=== PATIENT | female | born 1990 | race Caucasian/White ===

== ENCOUNTER 2017-10-25 19:25 | Emergency (ER) | payer OTHER ==
[~2017-10-25] VITALS: Ht 162.6 cm; Wt 81.6 kg
--- NOTE | 2017-10-25 20:46 | ED GI/GU/ABDOMINAL COMPLAINT ---
History of Present Illness General Chief Complaint: General Adult Stated Complaint: "ABD, N+V-D" Source: patient Exam Limitations: no limitations Vital Signs & Intake/Output Vital Signs & Intake/Output Vital Signs Date Time Temp Pulse Resp B/P B/P Pulse O2 O2 Flow FiO2 Mean Ox Delivery Rate 10/26 0156 98.7 88 18 121/61 98 Room Air 10/25 2345 98.2 89 18 119/57 97 Room Air 10/25 1945 98.0 83 18 131/85 98 Room Air ED Intake and Output 10/26 0000 10/25 1200 Intake Total Output Total Balance Patient 180 lb Weight Weight Reported by Patient Measurement Method Allergies Coded Allergies: Sulfa (Sulfonamide Antibiotics) ("SEVERE STOMACH ISSUES" PER PT 10/25/17) codeine ("HOT AND ITCHY" PER PT 10/25/17) pseudoephedrine (From SUDAFED) (HIVES/UPSET STOMACH PER PT 10/25/17) Reconcile Medications Fluconazole (Diflucan) 150 MG TABLET 1 TAB PO ONCE YEAST INFECTION REPEAT IN 1 WEEK. Phenazopyridine HCl (Pyridium) 100 MG TABLET 1 TAB PO TID PRN DYSURIA Triage Note: PT FROM HOME C/O LOWER ABD/PELVIC PAIN X1 WEEK. PT STATES THAT SINCE SATURDAY SHE HAS BEEN TO A WALK IN CLINIC, PCP WITH NO ANSWERS D/T ABD/PELVIC PAIN. PAIN 10. PT STATES UTI RESULTS WAS NEGATIVE, PT HAS BEEN ON CIPRO AND PYRIDIUM. PT STATES 1 MONTH PRIOR SHE HAD A UTI AND HAS NOT FELT BETTER SINCE. PT HAD US PERFORMED TODAY WITH NO RESULTS. PT HAS BURNING UPON URINATION AND MORE FREQUENTLY. PT DENIES VOMITING, +NAUSEA. VSS. Triage Nurses Notes Reviewed? yes ? n Is pt currently ? No Onset: Gradual Duration: day(s): Timing: recent history Location: suprapubic Radiation: no radiation Activities at Onset: none Prior Abdominal Problems: similar symptoms Modifying Factors: Worsens With: urinating. Associated Symptoms: dysuria HPI: 27-year-old woman presents with 6 days of lower abdominal pain. She states that she has been treated for a urinary tract infection 3. She is presently day 4 of ciprofloxacin. She saw her OBSTETRICAL NURSE today and had a transvaginal ultrasound, but does not yet know the results. She notes suprapubic pressure and difficulty with urination. She has no radiating pain into her back. No fever chills nausea vomiting diarrhea. She notes a white vaginal discharge which she suspects is a yeast infection. Past History Travel History Traveled to [place] past 21 day No Medical History Any Pertinent Medical History? see below for history Neurological: SPINAL/NERVE DAMAGE EENT: allergies Gastrointestinal: GERD Psychiatric: anxiety, depression Surgical History Surgical History: none Psychosocial History What is your primary language Burmese Tobacco Use: Quit >30 days ago ETOH Use: denies use Illicit Drug Use: marijuana Family History Hx Contributory? No Review of Systems Review of Systems Constitutional: Denies: see HPI. EENTM: Reports: no symptoms. Respiratory: Reports: no symptoms. Cardiovascular: Reports: no symptoms. GI: Reports: no symptoms. Genitourinary: Reports: no symptoms. Musculoskeletal: Reports: no symptoms. Skin: Reports: no symptoms. Neurological/Psychological: Reports: no symptoms. Hematologic/Endocrine: Reports: no symptoms. Immunologic/Allergic: Reports: no symptoms. All Other Systems: Reviewed and Negative Physical Exam Physical Exam Gastrointestinal: SEE BELOW Comments: Review of Systems - except as otherwise noted in HPI Review of Systems Constitutional:no symptoms. EENTM:no symptoms. Respiratory:no symptoms. Cardiovascular:no symptoms. GI:no symptoms. Genitourinary:no symptoms. Musculoskeletal:no symptoms. Skin:no symptoms. Neurological/Psychological:no symptoms. Hematologic/Endocrine:no symptoms. Immunologic/Allergic:no symptoms. All Other Systems: Reviewed and Negative Physical Exam Physical Exam General Appearance: well developed/nourished, no apparent distress Head: atraumatic, normal appearance Eyes: Bilateral: normal appearance. Ears, Nose, Throat: normal pharynx, normal ENT inspection Neck: normal inspection, supple, full range of motion Respiratory: normal breath sounds, chest non-tender, no respiratory distress, quiet respiration, lungs clear Cardiovascular: regular rate/rhythm Gastrointestinal: normal bowel sounds, soft, no organomegaly, mild suprapubic tenderness. No palpable bladder Pelvic: Moderate discharge consistent with yeast. Minimal adnexal tenderness bilaterally. Back: normal inspection, normal range of motion Extremities: normal inspection, normal capillary refill, normal range of motion, no edema Neurologic/Psych: no motor/sensory deficits, awake, alert, oriented x 3 Skin: intact, normal color, warm/dry Core Measures ACS in differential dx? No Sepsis Present: No Sepsis Focused Exam Completed? No Progress Differential Diagnosis: uti vs urinary retention vs other. Plan of Care: Orders Procedure Date/time Status Straight Cath 10/25 2306 Active TRICHOMONAS 10/25 2234 Complete POTASSIUM HYDROXIDE (JIM) 10/25 2234 Complete GENITAL CULTURE 10/25 2234 Active CHLAMYDIA-GC DNA PROBE 10/25 2234 Active URINALYSIS 10/25 1944 Complete LIPASE 10/25 1944 Complete HEPATIC FUNCTION PANEL 10/25 1944 Complete HUMAN BETA HCG SCREEN 10/25 1944 Complete CBC WITHOUT DIFFERENTIAL 10/25 1944 Complete BASIC METABOLIC PANEL 10/25 1944 Complete AMYLASE 10/25 1944 Complete Laboratory Tests 10/25/172044: Anion Gap 11, Estimated GFR > 60, BUN/Creatinine Ratio 18.6, Glucose 89, Calcium 9.9, Total Bilirubin 0.2, Direct Bilirubin 0.1, AST 18, ALT 24, Alkaline Phosphatase 68, Total Protein 7.1, Albumin 4.1, Amylase 63, Lipase 195, Total Beta HCG NEGATIVE, CBC w Diff NO MAN DIFF REQ, RBC 4.60, MCV 84.7, MCH 28.4, MCHC 33.5, RDW 13.1, MPV 10.1, Gran % 71.1, Lymphocytes % 22.7, Monocytes % 5.3, Eosinophils % 0.8, Basophils % 0.1, Absolute Granulocytes 6.5, Absolute Lymphocytes 2.1, Absolute Monocytes 0.5, Absolute Eosinophils 0.1, Absolute Basophils 0 10/25/17 2000: Urine Color YEL, Urine Clarity CLEAR, Urine pH 6.0, Ur Specific [place] <= 1.005 , Urine Protein NEG, Urine Ketones NEG, Urine Nitrite POS H, Urine Bilirubin NEG, Urine Urobilinogen 1.0, Ur Leukocyte Esterase NEG, Ur Microscopic SEDIMENT EXAMINED, Urine RBC 1-3, Ur Epithelial Cells FEW, Urine Bacteria FEW H, Urine Hemoglobin NEG, Urine Glucose NEG Microbiology 10/26 2303 GENITAL: GC DNA Probe - RECD 10/26 2303 GENITAL: Chlamydia DNA Probe (JOANNA) - RECD 10/26 2303 GENITAL: JIM Preparation - COMP 10/26 2303 GENITAL: Trichomonas Preparation - COMP 10/26 2303 GENITAL: Genital Culture - RECD Diagnostic Imaging: Viewed by Me: CT Scan. Discussed w/RAD: CT Scan. Radiology Impression: PATIENT: CARMELLA KUNZ PRESENT AGE: 27 PATIENT ACCOUNT NO: [id number] : 91 LOCATION: [facility] ORDERING PHYSICIAN: Jarrod Bass MD SERVICE DATE: 10/25/17 EXAM TYPE: CAT - CT ABD & PELVIS W/O IV CONTRAS EXAMINATION: CT ABDOMEN AND PELVIS WITHOUT CONTRAST CLINICAL INFORMATION: Lower abdominal pain COMPARISON: None TECHNIQUE: Multidetector volumetric imaging was performed from the superior aspect of the liver through the pubic symphysis. Sagittal and coronal reformatted images were obtained on the technologist's workstation. DLP: 457.5 tube mGy-cm FINDINGS: LUNG BASES: The visualized lung bases are unremarkable. LIVER, GALLBLADDER, AND BILIARY TREE: The liver is normal in size, shape, and attenuation. No focal hepatic lesion or biliary ductal dilatation is present. Patient is status post cholecystectomy. PANCREAS: Unremarkable. SPLEEN: There are adjacent hypoattenuating lesions in the posterior spleen measuring 2.4 x 1.8 cm and 1.1 x 1.0 cm which have the density of fluid, therefore suggesting cysts. ADRENAL GLANDS: Unremarkable. KIDNEYS AND URETERS: The kidneys are normal in size, shape, and attenuation. No hydronephrosis, hydroureter, or calculi seen. No perinephric stranding. BLADDER: Unremarkable. GASTROINTESTINAL TRACT: The small and large bowel are unremarkable. The appendix is unremarkable. No free fluid or free air is seen. ABDOMINAL WALL: No significant hernia is appreciated. LYMPH NODES: Normal. VASCULAR: Unremarkable. PELVIC VISCERA: Unremarkable. OSSEOUS STRUCTURES: Bilateral L5 pars defects are noted. IMPRESSION: 1. No acute findings identified in the abdomen/pelvis. 2. Low-density lesions in the spleen, suggestive of cysts. DICTATED BY: Markus Batista MD DATE/TIME DICTATED: 10/26/1748 HAND CANDLE MOLDER:URIEL DATE/TIME TRANSCRIBED:10/26/1748 CONFIDENTIAL, DO NOT COPY WITHOUT APPROPRIATE AUTHORIZATION. <Electronically signed in Other Vendor System> SIGNED BY: Markus Batista MD 10/26/17 0100 Initial ED EKG: none Departure Departure Disposition: HOME OR SELF CARE Condition: Stable Clinical Impression Primary Impression: Vaginal yeast infection Secondary Impressions: Abdominal pain Referrals: Lilian Prado APRN (PCP/Family) Departure Forms: Customer Survey General Discharge Information Prescriptions: Current Visit Scripts Fluconazole (Diflucan) 1 TAB PO ONCE #2 TAB REPEAT IN 1 WEEK. Phenazopyridine HCl (Pyridium) 1 TAB PO TID PRN DYSURIA #12 TAB Ref 1 Comments Discussed at length with the patient. CAT scan and lab work were benign which raises the question of interstitial cystitis versus endometriosis. She will follow-up with her urologist and her OBSTETRICAL NURSE Physician.
[2017-10-25 20:51] LABS: ABSOLUTE BASOPHIL COUNT 0 /CUMM (0.0-0.2); ABSOLUTE EOSINOPHIL COUNT 0.1 /CUMM (0.0-0.7); ABSOLUTE GRANULOCYTE CT 6.5 /CUMM (1.4-6.5); ABSOLUTE LYMPH COUNT 2.1 /CUMM (1.2-3.4); ABSOLUTE MONOCYTE COUNT 0.5 /CUMM (0.10-0.60); BASOPHIL % 0.1 % (0.0-2.0); EOSINOPHIL % 0.8 % (0-5); GRANULOCYTE % 71.1 % (42.2-75.2); MEAN CORPUSCULAR HGB 28.4 PG (27.0-31.0); MEAN CORPUSCULAR HGB CONC 33.5 G/DL (33.0-37.0); MEAN CORPUSCULAR VOLUME 84.7 FL (81.0-99.0); MEAN PLATELET VOLUME 10.1 FL (7.4-10.4); PLATELET COUNT 217 /CUMM (130-400); RBC DISTRIBUTION WIDTH 13.1 % (11.5-14.5); WHITE BLOOD CELL COUNT 9.2 /CUMM (4.8-10.8)
[2017-10-25] MEDS ORDERED: DIFLUCAN150 M1 PO (23:07)
--- NOTE | 2017-10-26 01:00 | CT SCAN REPORT ---
EXAMINATION: CT ABDOMEN AND PELVIS WITHOUT CONTRAST CLINICAL INFORMATION: Lower abdominal pain COMPARISON: None TECHNIQUE: Multidetector volumetric imaging was performed from the superior aspect of the liver through the pubic symphysis. Sagittal and coronal reformatted images were obtained on the technologist's workstation. DLP: 457.5 tube mGy-cm FINDINGS: LUNG BASES: The visualized lung bases are unremarkable. LIVER, GALLBLADDER, AND BILIARY TREE: The liver is normal in size, shape, and attenuation. No focal hepatic lesion or biliary ductal dilatation is present. Patient is status post cholecystectomy. PANCREAS: Unremarkable. SPLEEN: There are adjacent hypoattenuating lesions in the posterior spleen measuring 2.4 x 1.8 cm and 1.1 x 1.0 cm which have the density of fluid, therefore suggesting cysts. ADRENAL GLANDS: Unremarkable. KIDNEYS AND URETERS: The kidneys are normal in size, shape, and attenuation. No hydronephrosis, hydroureter, or calculi seen. No perinephric stranding. BLADDER: Unremarkable. GASTROINTESTINAL TRACT: The small and large bowel are unremarkable. The appendix is unremarkable. No free fluid or free air is seen. ABDOMINAL WALL: No significant hernia is appreciated. LYMPH NODES: Normal. VASCULAR: Unremarkable. PELVIC VISCERA: Unremarkable. OSSEOUS STRUCTURES: Bilateral L5 pars defects are noted. IMPRESSION: 1. No acute findings identified in the abdomen/pelvis. 2. Low-density lesions in the spleen, suggestive of cysts.
[2017-10-26] MEDS ORDERED: PYRIDIUM100 M1 PO (01:45)
[2017-10-26 01:56] VITALS: BP 121/61
== END 2017-10-26 01:57 ==
LOC: ERH 19:25
PROVIDERS: Pediatrics
DX: B37.3 Candidiasis of vulva and vagina (principal); R10.30 Lower abdominal pain, unspecified; N89.8 Other specified noninflammatory disorders of vagina
CPT/HCPCS: 87070; 74176; 81001; 87491; 87591; 96372; J1885